=== PATIENT | male | born 2000 | race Caucasian/White ===

== ENCOUNTER 2020-10-21 00:17 | Emergency (ER) | payer OTHER, SELFPAY ==
--- NOTE | ~2020-10-21 | XR_ITS ---
EXAMINATION: XR knee LT 3V DATE: 10/21/2020 00:58 INDICATION: Left knee injury. TECHNIQUE: 3 views of left knee were obtained. COMPARISON: Left femur radiographs 11/24/2007 FINDINGS: Bone alignment is normal. No fracture. Again seen is an osteochondroma at posterolateral as pect of distal femoral metaphysis. The joint spaces are normal. No knee joint effusion. IMPRESSION: 1. No fracture. Reviewed, dictated and finalized at location A. PUBLIC RELATIONS IMPRESSION: 1. No fracture.
[2020-10-21 00:27] VITALS: BP 141/81; PULSE 98; RESP 16; TEMP 35.9; O2SAT 100
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
[2020-10-21] MEDS: HYDROcodone/acetaminophen (*CRX) 5-325 MG TABLET 1 TAB PO (02:02)
[2020-10-21 02:43] VITALS: BP 126/79; PULSE 81; RESP 16; TEMP 36.8; O2SAT 100
== END 2020-10-21 02:43 | disposition home or self-care (01) ==
PROVIDERS: Emergency Provider Emergency Medicine
DX: D16.22 Benign neoplasm of long bones of left lower limb (principal); F17.210 Nicotine dependence, cigarettes, uncomplicated
CPT/HCPCS: 73562; 99283; A9270

== ENCOUNTER 2020-11-22 20:51 | Emergency (ER) | payer OTHER, SELFPAY ==
[2020-11-22 21:04] VITALS: BP 134/58; PULSE 83; RESP 18; TEMP 36.7; O2SAT 100
--- NOTE | 2020-11-22 21:47 | ED.WOUNDLAC ---
HPI - Wound/Laceration General Chief Complaint: Wound/Laceration Stated Complaint: lump inside left stomach and boil in left groin Time Seen by Provider: 11/22/20 21:09 Source: patient Mode of arrival: ambulatory Limitations: no limitations History of Present Illness HPI narrative: This is a 20 year old male that presents to the ER for redness and swelling to the lower abdomen. Also reports pain to the area. Denies fever or drainage. Related Data Allergies Allergy/AdvReac Type Severity Reaction Status Date / Time peanut Allergy Severe Rash Verified 11/22/20 21:11 Cephalosporins Allergy Mild Stopped Verified 11/22/20 21:11 Breathing Penicillins Allergy Mild Stopped Verified 11/22/20 21:11 Breathing Review of Systems Review of Systems: Narrative: CONSTITUTIONAL: Denies fever GASTROINTESTINAL: Denies abdominal pain, nausea, vomiting SKIN: Denies rash All systems reviewed & are unremarkable except as noted in HPI and below PMFSH Past Medical History Medical History (Updated 11/22/20 @ 23:19 by Avis Arzola PA-C) Healthy adult male Surgical History Surgical History (Updated 10/21/20 @ 01:34 by Grant Gallegos MD) No history of previous surgery Social History Social History (Updated 10/21/20 @ 01:34 by Grant Gallegos MD) Tobacco type: cigarettes Exam Narrative: Exam Narrative: GENERAL: Well-appearing, well-nourished, and in no acute distress. HEAD: Normocephalic, atraumatic. EYES: EOMI. CHEST: Clear to auscultation. No respiratory distress. No wheezes rales or rhonchi HEART: Regular rate and rhythm. No murmur heard. Normal peripheral pulses. ABDOMEN: Soft, nontender, nondistended, normal active bowel sounds. 5cm area of erythema and edema to the mid/lower abdomen with central fluctuance. Tender to palpation EXTREMITIES: Normal range of motion. No edema. SKIN: Warm, dry, no rash. NEURO: No focal deficits. Alert and oriented x3. PSYCH: Normal mood and affect Course Vital Signs Vital signs: Vital Signs Temperature 98.1 F 11/22/20 21:04 Pulse Rate 83 11/22/20 21:04 Respiratory Rate 18 11/22/20 21:04 Blood Pressure 134/58 L 11/22/20 21:04 Pulse Oximetry 100 11/22/20 21:04 Temperature 98.1 F 11/22/20 21:04 Pulse Rate 83 11/22/20 21:04 Respiratory Rate 18 11/22/20 21:04 Blood Pressure 134/58 L 11/22/20 21:04 Pulse Oximetry 100 11/22/20 21:04 Procedures Abscess I/D abdomen: Date of Incision: 11/22/20 Time of Incision: 23:17 Local Anesthetic: lidocaine 1% and with epi Amount of anesthesia used (mL): 4 Technique: incised with #11 blade Packing used?: plain I&D Results: Pus and Blood MDM - Wound/Laceration MDM Narrative Medical decision making narrative: Patient presents the emergency department for abdominal wall abscess. He is afebrile and nontoxic-appearing. Was successfully drained. Wound culture was sent. Patient will be started on oral antibiotics. Was instructed on wound care. He is stable and felt appropriate for outpatient evaluation. He was given warnings to return to the ER Critical Care Time Critical Care Time Critical Care Time: No Discharge Plan Discharge Clinical Impression: Abdominal wall abscess Patient Disposition: Home, Self-Care Condition: Stable Instructions: Antibiotic Form, Abscess (ED) Additional Instructions: Return if symptoms worsen or concerns: any increase in redness, swelling, pain, or fever over 101 Take antibiotics as directed. Clean wound with mild soapy water. Apply antibiotic ointment and clean dressing at least three times daily. Warm compresses 3 times a day for 30 minutes each Follow up with primary care in the next 2-3 days for re-evaluation and packing removal Prescriptions: New doxycycline hyclate 100 mg capsule 100 mg PO BID 7 Days Qty: 14 RF: 0 Follow-up/Referrals: PHYSICIAN,FUSION JUNCTURE GRINDER [Primary Care Provider] - Marty Vidales MD
[2020-11-22 23:53] VITALS: BP 128/71; PULSE 88; RESP 16; O2SAT 100
== END 2020-11-22 23:57 | disposition home or self-care (01) ==
PROVIDERS: Emergency Provider Emergency Medicine
DX: L02.211 Cutaneous abscess of abdominal wall (principal)
CPT/HCPCS: 10060; 87070; 87205; 99283

== ENCOUNTER 2020-11-23 18:54 | Emergency (ER) | payer OTHER, SELFPAY ==
[2020-11-23 19:04] VITALS: BP 138/80; PULSE 89; RESP 18; TEMP 37.6; O2SAT 98
[2020-11-23 20:18] LABS: Basophils Percent Auto 0.3 % (0.2-1.2); Eosinophils Percent Auto 0.1 % (0-4.4); Hematocrit 46.3 % (42.0-52.0); Hemoglobin 16.2 g/dL (14.0-18.0); Immature Granulocyte Absolute 0.04 K/mm3 (0.00-0.031); Immature Granulocyte Percent A 0.4 % (0-0.5); Lymphocytes Absolute Auto 0.58 K/mm3 (0.9-3.2); Lymphocytes Percent Auto 5.2 % (18.3-44.2); Mean Corpuscular Hemoglobin 29.3 pg (26-34); Mean Corpuscular Volume 83.7 fl (80-100); Mean Platelet Volume 9.9 fl (7.4-10.4); Monocytes Percent Auto 8.6 % (2.6-8.5); Neutrophils Absolute Auto 9.5 K/mm3 (1.3-6.7); Neutrophils Percent Auto 85.4 % (45.5-73.1); Platelet Count Result 191 k/mm3 (150-375); Red Blood Count 5.53 M/mm3 (4.6-6.20); Red Cell Distribution Width 12.5 % (11.5-14.5); White Blood Count 11.1 K/mm3 (4.5-10.0)
[2020-11-23] MEDS: SODIUM CHLORIDE 0.9% IV 1,000 ML 999 ML IV CONT (20:27)
[2020-11-23] MEDS: ONDANSETRON INJ 4 MG/2 ML VIAL IV PUSH (20:27)
[2020-11-23 20:29] LABS: Lactic Acid Reflex 0.8 mmol/L (0.7-2.1)
[2020-11-23 20:30] LABS: Alanine Aminotransferase 33 U/L (4-50); Albumin Level 4.5 g/dL (3.5-5.1); Alkaline Phosphatase 84 U/L (38-126); Anion Gap 8 mmol/L (8-16); Aspartate Amino Transferase 26 U/L (17-59); Bilirubin,Total 1.4 mg/dL (0.2-1.3); Blood Urea Nitrogen 20 mg/dL (9-20); Calcium 9.6 mg/dL (8.4-10.2); Carbon Dioxide 22 mmol/L (22-30); Chloride 108 mmol/L (98-107); Estimated CRCL calculation 126 ml/min; Estimated Glomerular Filt Rate > 60; Glucose 108 mg/dL (75-110); Potassium 3.6 mmol/L (3.4-5.0); Sodium 138 mmol/L (137-145)
[2020-11-23 20:53] VITALS: BP 128/80; PULSE 80; RESP 18; O2SAT 99
--- NOTE | 2020-11-23 21:17 | ED.GENADULT ---
HPI - General Adult General Chief complaint: Dizziness Stated complaint: abscess drained yest., now fever, dizzy, vomit Time Seen by Provider: 11/23/20 19:32 History of Present Illness HPI narrative: Patient is a 20-year-old gentleman who presents the emergency department with chief complaint of fever body aches and chills. The patient had an incision and drainage yesterday in the emergency department and an abscess in the left lower quadrant of his abdomen. Patient states the area has been doing okay but reports that he started to have temperatures up to 104 he is taken 1 dose of his antibiotic and took some ibuprofen. The patient states that he is feeling a little better right now also did reports that he was drenched in sweat whenever he had the temperature. Patient denies chest pain denies shortness of breath denies sore throat or runny nose. Related Data Allergies Allergy/AdvReac Type Severity Reaction Status Date / Time peanut Allergy Severe Rash Verified 11/23/20 19:09 Cephalosporins Allergy Mild Stopped Verified 11/23/20 19:09 Breathing Penicillins Allergy Mild Stopped Verified 11/23/20 19:09 Breathing Review of Systems Review of Systems: Narrative: A 10 system review of systems was completed on the patient and is negative except for what is stated in the HPI. Nursing and ancillary documentation was reviewed. [facility] Past Medical History Medical History Healthy adult male Surgical History Surgical History No history of previous surgery Social History Social History Tobacco type: cigarettes Gender identity (if verbalized by the patient): Male Exam Narrative: Exam Narrative: GENERAL: Well-appearing, well-nourished, and in no acute distress. HEAD: Normocephalic, atraumatic. EYES: PERRLA and EOMI. ENT: Nares clear, no rhinorrhea or epistaxis. Mucous membranes moist. NECK: Supple. CHEST: Clear to auscultation. No respiratory distress. HEART: Regular rate and rhythm. No murmur heard. Normal peripheral pulses. ABDOMEN: Soft, nontender, nondistended, normal active bowel sounds. EXTREMITIES: Normal range of motion. No edema. SKIN: Warm, dry, no rash. There is a drained abscess in the left inguinal region. There is slight erythema there is no purulent drainage at this time NEURO: No focal deficits. Alert and oriented x3. PSYCH: Normal mood and affect. Course Course Emergency Course: Patient's laboratory studies were reviewed the patient is currently afebrile he was treated with IV fluids and antiemetics he is feeling much better at this time the patient was instructed to continue taking the antibiotics and the patient will be discharged home. Vital Signs Vital signs: Vital Signs Temperature 37.6 C 11/23/20 19:04 Pulse Rate 89 11/23/20 19:04 Respiratory Rate 18 11/23/20 19:04 Blood Pressure 138/80 11/23/20 19:04 Pulse Oximetry 98 11/23/20 19:04 Temperature 37.6 C 11/23/20 19:04 Pulse Rate 80 11/23/20 20:53 Respiratory Rate 18 11/23/20 20:53 Blood Pressure 128/80 11/23/20 20:53 Pulse Oximetry 99 11/23/20 20:53 Medical Decision Making Vital Signs Vital Signs: Vital Signs Temperature 37.6 C 11/23/20 19:04 Pulse Rate 89 11/23/20 19:04 Respiratory Rate 18 11/23/20 19:04 Blood Pressure 138/80 11/23/20 19:04 Pulse Oximetry 98 11/23/20 19:04 Temperature 37.6 C 11/23/20 19:04 Pulse Rate 80 11/23/20 20:53 Respiratory Rate 18 11/23/20 20:53 Blood Pressure 128/80 11/23/20 20:53 Pulse Oximetry 99 11/23/20 20:53 Lab Data Result diagrams: 11/23/20 20:11 11/23/20 20:11 Labs: Lab Results 11/23/20 11/23/20 11/23/20 Range/Units 20:11 20:11 20:11 WBC 11.1 H (4.5-10.0) K/mm3 RBC 5.53 (4.6-6.20) M/mm3
[2020-11-23 21:35] VITALS: BP 130/78; PULSE 82; RESP 18; O2SAT 99
== END 2020-11-23 21:36 | disposition home or self-care (01) ==
PROVIDERS: Emergency Provider Emergency Medicine
DX: R50.9 Fever, unspecified (principal); L02.214 Cutaneous abscess of groin; F17.210 Nicotine dependence, cigarettes, uncomplicated
CPT/HCPCS: 36415; 80053; 83605; 85025; 96361; 96374; 99284; J2405; J7030

== ENCOUNTER 2021-02-18 19:17 | Emergency (ER) | payer OTHER, SELFPAY ==
--- NOTE | ~2021-02-18 | XR_ITS ---
EXAMINATION: XR chest 2V DATE: 02/18/2021 19:46 INDICATION: Cough, shortness of breath, body aches and hematemesis one day prior TECHNIQUE: PA and lateral views of the chest were obtained. COMPARISON: Chest radiograph dated 03/06/2009 FINDINGS: The lungs remain clear with no focal airspace opacities, pulmonary edema, pleural effusion or pneumot horax. The cardiomediastinal silhouette is normal. Visualized bones and soft tissues are unremarkable . IMPRESSION: 1. No acute cardiopulmonary disease. Reviewed, dictated and finalized at location A.
[2021-02-18 19:20] VITALS: BP 148/78; PULSE 109; RESP 19; TEMP 36.2; O2SAT 96
[2021-02-18 19:35] LABS: Basophils Percent Auto 0.3 % (0.2-1.2); Eosinophils Percent Auto 0.1 % (0-4.4); Hematocrit 46.5 % (42.0-52.0); Hemoglobin 16.1 g/dL (14.0-18.0); Immature Granulocyte Absolute 0.07 K/mm3 (0.00-0.031); Immature Granulocyte Percent A 0.5 % (0-0.5); Lymphocytes Absolute Auto 1.15 K/mm3 (0.9-3.2); Lymphocytes Percent Auto 7.9 % (18.3-44.2); Mean Corpuscular HGB Conc 34.6 g/dl (32-36); Mean Corpuscular Hemoglobin 28.6 pg (26-34); Mean Corpuscular Volume 82.7 fl (80-100); Mean Platelet Volume 10.2 fl (7.4-10.4); Monocytes Absolute Auto 1.2 K/mm3 (0.1-0.6); Monocytes Percent Auto 8.1 % (2.6-8.5); Neutrophils Absolute Auto 12.1 K/mm3 (1.3-6.7); Neutrophils Percent Auto 83.1 % (45.5-73.1); Platelet Count Result 229 k/mm3 (150-375); Red Blood Count 5.62 M/mm3 (4.6-6.20); Red Cell Distribution Width 12.5 % (11.5-14.5); White Blood Count 14.5 K/mm3 (4.5-10.0)
[2021-02-18 19:51] LABS: Anion Gap 14 mmol/L (8-16); Blood Urea Nitrogen 14 mg/dL (9-20); Calcium 9.8 mg/dL (8.4-10.2); Carbon Dioxide 22 mmol/L (22-30); Chloride 104 mmol/L (98-107); Estimated CRCL calculation 132 ml/min; Estimated Glomerular Filt Rate > 60; Glucose 129 mg/dL (75-110); Potassium 3.8 mmol/L (3.4-5.0); Sodium 140 mmol/L (137-145)
--- NOTE | 2021-02-18 21:27 | ED.GENADULT ---
HPI - General Adult General Chief complaint: Upper Respiratory Infection Stated complaint: im sick Time Seen by Provider: 02/18/21 21:19 Source: patient Mode of arrival: ambulatory Limitations: no limitations History of Present Illness HPI narrative: Tevin came in after having cough shortness of breath and some wheezing for the last 3 days. He is a smoker and he has not smoked for the last 3 days. He has been afebrile he has vomited a couple times he vomited up a little blood yesterday but no more since then and he went to [facility] they looked at him and told him to use albuterol inhaler and he feels better. He has been an asthmatic most of his life. Treatments prior to arrival: none Related Data Allergies Allergy/AdvReac Type Severity Reaction Status Date / Time peanut Allergy Severe Rash Verified 02/18/21 19:23 Cephalosporins Allergy Mild Stopped Verified 02/18/21 19:23 Breathing Penicillins Allergy Mild Stopped Verified 02/18/21 19:23 Breathing Review of Systems Review of Systems: All systems reviewed & are unremarkable except as noted in HPI and below PMFSH Past Medical History Medical History Healthy adult male Surgical History Surgical History No history of previous surgery Social History Social History Tobacco type: cigarettes Gender identity (if verbalized by the patient): Male Exam Const: General: cooperative, acute distress and diaphoretic Nutritional Appearance: average body habitus and well nourished Orientation/consciousness: oriented to person, oriented to place and oriented to time Limitations: no limitations HENMT: Head: normal to inspection Ears: hearing grossly normal bilaterally, external ears normal, TM's normal bilaterally, TM normal on the right, mastoids normal and no periauricular adenopathy General nose exam: Normal external nose present, Normal nares present, No nasal polyps present, Normal nasal mucous membranes and turbinates present and No nasal discharge present Mouth: Yes Normal oral and palatal mucosa present, Yes lip normal, Yes tongue normal, Yes Normal salivary glands and ducts present, Yes oropharynx normal and Yes moist mucous membranes Teeth and gingiva: dentition normal and gingiva normal Throat: posterior oropharynx normal, tonsils normal and uvula midline Eyes: General: appearance normal, both eyes and all related structures Neck: Neck: normal visual inspection, full ROM, no lymphadenopathy, no meningeal signs, trachea midline and supple Resp: Effort & Inspection: abnormal respiratory pattern, Actively coughing, labored and tripod positioning Auscultation: abnormal I/E ratio, diminished lung sounds and bronchial breath sounds Percussion: percussion normal Cardio: Jugular venous distension: no JVD Palpation: normal PMI Rate: regular rate Rhythm: regular rhythm Heart sounds: S1 normal heart sound present and S2 normal heart sound present Peripheral pulses: Peripheral pulses 2+ throughout GI: Inspection: normal to inspection Auscultation: normal bowel sounds Course Course Emergency Course: Patient received neb treatment with albuterol and Atrovent and patient feels much better. He was also given a loading dose of prednisone to 50 mg. Patient's rating his breathing 8 out of 10 it was 5 out of 10 when he arrived. The exam slight wheezing noted air exchange 3+. Vital Signs Vital signs: Vital Signs Temperature 36.2 C L 02/18/21 19:20 Pulse Rate 109 H 02/18/21 19:20 Respiratory Rate 02/18/21 19:20 Blood Pressure 148/78 H 02/18/21 19:20 Pulse Oximetry 96 02/18/21 19:20 Temperature 36.2 C L 02/18/21 19:20 Pulse Rate 109 H 02/18/21 19:20 Respiratory Rate 02/18/21 19:20 Blood Pressure 148/78 H 02/18/21 19:20 Pulse Oximetry 96 02/18/21 19:20 Medical Decision
[2021-02-18] MEDS: predniSONE 40 MG, predniSONE 10 MG 50 MG PO (21:42)
[2021-02-18] MEDS: ALBUTEROL SULFATE NEB 2.5 MG/3 ML INH INHALATION (21:44)
[2021-02-18] MEDS: IPRATROPIUM BR 0.02% INH SOLN 0.5 MG/2.5 ML VIAL INHALATION (21:44)
[2021-02-18 21:47] VITALS: PULSE 102; RESP 18
[2021-02-18 21:55] VITALS: PULSE 98; RESP 18
[2021-02-18 22:39] VITALS: BP 141/84; PULSE 92; RESP 18; TEMP 36.3; O2SAT 98
== END 2021-02-18 22:40 | disposition home or self-care (01) ==
PROVIDERS: Emergency Medicine; Emergency Provider Pediatrics
DX: J45.901 Unspecified asthma with (acute) exacerbation (principal); F17.210 Nicotine dependence, cigarettes, uncomplicated
CPT/HCPCS: 36415; 71046; 80048; 85025; 94640; 99283; J7512

== ENCOUNTER → 2021-05-17 10:28 | Outpatient (CLI) | payer OTHER, SELFPAY ==
--- NOTE | ~2021-05-17 | XR_ITS ---
EXAMINATION: XR chest 2V DATE: 05/17/2021 10:43 INDICATION: Cough and shortness of breath TECHNIQUE: PA and lateral views of the chest are obtained. COMPARISON: 02/18/2021 FINDINGS: The lungs are free of acute opacities. There is no pleural effusion or pneumothorax. The ca rdiomediastinal silhouette is normal. The visualized bones and soft tissues are unremarkable. IMPRESSION: 1. No acute cardiopulmonary abnormality. Reviewed, dictated and finalized at location A.
== END ==
PROVIDERS: PCP Emergency Medicine; Visit Provider Emergency Medicine
DX: R06.02 Shortness of breath (principal); R06.2 Wheezing; R05 Cough
CPT/HCPCS: 71046

== ENCOUNTER 2021-06-18 18:04 | Emergency (ER) | payer OTHER, SELFPAY ==
[2021-06-18 18:17] VITALS: BP 135/81; PULSE 89; RESP 16; TEMP 36.9; O2SAT 96
--- NOTE | 2021-06-18 18:45 | ED.GENADULT ---
HPI - General Adult General Chief complaint: Urogenital-Male Stated complaint: STD check Time Seen by Provider: 06/18/21 18:22 Source: patient Mode of arrival: ambulatory Limitations: no limitations History of Present Illness HPI narrative: Patient presents 1 may be treated for trichomoniasis after his girlfriend tested positive. She has been given a prescription by her LOGISTICS OFFICER. Patient denies any symptoms. Patient states that he was tested for other STDs and it came back negative. Related Data Allergies Allergy/AdvReac Type Severity Reaction Status Date / Time peanut Allergy Severe Rash Verified 02/18/21 19:23 Cephalosporins Allergy Mild Stopped Verified 02/18/21 19:23 Breathing Penicillins Allergy Mild Stopped Verified 02/18/21 19:23 Breathing Review of Systems Review of Systems: CONSTITUTIONAL: Denies fever, chills, or sweats. EYES: Denies visual changes, redness, or discharge. ENT: Denies rhinorrhea, congestion, sore throat, or otalgia. CARDIOVASCULAR: Denies chest pain, palpitations, or edema. RESPIRATORY: Denies cough or dyspnea. GASTROINTESTINAL: Denies abdominal pain, nausea, vomiting, or diarrhea. GENITOURINARY: Denies dysuria or hematuria. SKIN: Denies rash or itching. MUSCULOSKELETAL: Denies back pain, joint pain, or myalgia. NEUROLOGIC: Denies headache, numbness, dizziness, or weakness. PSYCHIATRIC: Denies anxiety or depression. PMFSH Past Medical History Medical History Healthy adult male Surgical History Surgical History No history of previous surgery Social History Social History Tobacco type: cigarettes Gender identity (if verbalized by the patient): Male Exam Narrative: GENERAL: Well-appearing, well-nourished, and in no acute distress. HEAD: Normocephalic, atraumatic. EYES: PERRLA and EOMI. NECK: Supple. No adenopathy or masses. No carotid bruits or JVD CHEST: Clear to auscultation. No respiratory distress. No wheezes rales or rhonchi HEART: Regular rate and rhythm. No murmur heard. Normal peripheral pulses. EXTREMITIES: Normal range of motion. No edema. SKIN: Warm, dry, no rash. NEURO: No focal deficits. Alert and oriented x3. PSYCH: Normal mood and affect. Course Vital Signs Vital signs: Vital Signs Temperature 98.4 F 06/18/21 18:17 Pulse Rate 89 06/18/21 18:17 Respiratory Rate 16 06/18/21 18:17 Blood Pressure 135/81 06/18/21 18:17 Pulse Oximetry 96 06/18/21 18:17 Temperature 98.4 F 06/18/21 18:17 Pulse Rate 89 06/18/21 18:17 Respiratory Rate 16 06/18/21 18:17 Blood Pressure 135/81 06/18/21 18:17 Pulse Oximetry 96 06/18/21 18:17 Medical Decision Making MDM Narrative Medical decision making narrative: Patient likely treated for trichomoniasis. Patient states that his girlfriend tested positive. Patient states that he has been tested for other STDs by his primary care and it came back negative. Patient states that his girlfriend tested negative for any other STDs as well. Patient denies having any symptoms at this time. Patient instructed to time states that he and his partner have been treated and clear. Patient instructed to follow-up with his primary care for further evaluation and management. Vital Signs Vital Signs: Vital Signs Temperature 98.4 F 06/18/21 18:17 Pulse Rate 89 06/18/21 18:17 Respiratory Rate 16 06/18/21 18:17 Blood Pressure 135/81 06/18/21 18:17 Pulse Oximetry 96 06/18/21 18:17 Temperature 98.4 F 06/18/21 18:17 Pulse Rate 89 06/18/21 18:17 Respiratory Rate 16 06/18/21 18:17 Blood Pressure 135/81 06/18/21 18:17 Pulse Oximetry 96 06/18/21 18:17 Discharge Plan Discharge Clinical Impression: Exposure to STD Patient Disposition: Home, Self-Care Condition: Improved Instructions: Antibiotic Form, Trichomoni
[2021-06-18] MEDS: metroNIDAZOLE 250 MG TABLET 2000 MG PO (18:51)
== END 2021-06-18 19:12 | disposition home or self-care (01) ==
PROVIDERS: Emergency Provider Emergency Medicine; PCP Emergency Medicine
DX: Z20.2 Contact with and (suspected) exposure to infections with a predominantly sexual mode of transmission (principal)
CPT/HCPCS: 99283; A9270